=== PATIENT | male | born 1955 | race Caucasian/White ===

== ENCOUNTER 2016-12-04 16:37 | Observation (INO) | payer OTHER ==
[~2016-12-04] VITALS: Ht 167.6 cm; Wt 107.2 kg
[~2016-12-04 16:37] MED LIST: APIDRA SOL100 UNIT/1 SC; ASPIR 8181 M1 PO; ASPIRIN325 MG PO; ATORVASTATIN CA10 MG PO; CYANOCOBALAM1000 MCG PO; EFFIENT10 MG PO; HUMALOG100 UNIT/2 SC; LANTUS 3 M100 UNITS1 SC; LISINOPRIL40 MG PO; LOTREL 10/41 CAPSULE PO; METFORMIN HCL500 MG PO; METOPROLOL SUCC50 MG PO; NITROSTAT0.4 MG SL; PROTONIX40 MG PO; ROSUVASTATIN CA10 MG PO; VITAMIN D5000 UNI1 PO
[2016-12-04 17:38] LABS: EOSINOPHIL (%) 0.8 % (0-5); EOSINOPHIL COUNT 0.1 K/uL (0-0.3); HEMATOCRIT 29.9 % (38.0-50.0); IMMATURE GRANULOCYTE (%) 0.5 % (0.0-0.7); IMMATURE GRANULOCYTE COUNT 0.4 K/uL; LYMPHOCYTE COUNT 1.1 K/uL (1.0-2.8); MCH 23.8 PG (29.0-34.0); MCHC 31.4 G/DL (30.0-36.0); MCV 75.7 FL (86-99); MEAN PLAT.VOLUME 11.2 uM^3 (9.0-12.4); MONOCYTE (%) 5.6 % (3-12); MONOCYTE COUNT 0.4 K/uL (0-0.8); NEUTROPHIL (%) 77.6 % (45-76); NEUTROPHIL COUNT 5.8 K/uL (1.8-6.4); PLATELET COUNT 178 K/uL (156-360); RBC DIS.WIDTH-CV 15.9 % (11.8-14.6); RBC DIS.WIDTH-SD 41.3 % (39-53); RED BLOOD COUNT 3.95 M/uL (4.00-5.50)
[2016-12-04 17:40] LABS: WHITE BLOOD COUNT 7.5 K/uL (4.1-10.2)
[2016-12-04 17:46] LABS: CHLORIDE 101 mEq/L (99-109); POTASSIUM 4.6 mEq/L (3.7-5.4); SODIUM 133 mEq/L (136-147)
[2016-12-04 17:49] LABS: GLUCOSE 274 mg/dL (70-99)
[2016-12-04 17:50] LABS: ANION GAP 9 MEQ/L (2-14)
[2016-12-04 17:51] LABS: D-DIMER ELISA 0.33 mg/L FEU (< 0.57); TOTAL BILIRUBIN 0.4 mg/dL (0.0-1.0)
[2016-12-04 17:52] LABS: ALKALINE PHOSPHATASE 53 IU/L (3-129); GFR ESTIMATE (CALCULATED) > 59 mL/min/
[2016-12-04 17:53] LABS: UREA NITROGEN (BUN) 25 mg/dL (9-23)
[2016-12-04 18:14] LABS: TROP-I INTERPRETATION NEGATIVE; TROPONIN-I < 0.01 ng/mL (0.0-0.30)
[2016-12-04] MEDS ORDERED: GLUCOPHAGE XR,500 MG PO (20:05)
[2016-12-04] MEDS ORDERED: HYDROCHLOROTHIA25 MG PO (20:09)
[2016-12-04] MEDS ORDERED: ALEVE220 MG PO (20:09)
[2016-12-04] MEDS ORDERED: ZESTRIL40 MG PO (20:09)
[2016-12-05 01:08] LABS: TROP-I INTERPRETATION NEGATIVE; TROPONIN-I < 0.01 ng/mL (0.0-0.30)
[2016-12-05 06:34] LABS: EOSINOPHIL (%) 1.5 % (0-5); EOSINOPHIL COUNT 0.1 K/uL (0-0.3); HEMATOCRIT 25.7 % (38.0-50.0); IMMATURE GRANULOCYTE (%) 0.9 % (0.0-0.7); IMMATURE GRANULOCYTE COUNT 0.5 K/uL; LYMPHOCYTE COUNT 1.9 K/uL (1.0-2.8); MCH 23.8 PG (29.0-34.0); MCHC 31.1 G/DL (30.0-36.0); MCV 76.5 FL (86-99); MEAN PLAT.VOLUME 11.2 uM^3 (9.0-12.4); MONOCYTE (%) 6.7 % (3-12); MONOCYTE COUNT 0.4 K/uL (0-0.8); NEUTROPHIL (%) 58.6 % (45-76); NEUTROPHIL COUNT 3.4 K/uL (1.8-6.4); PLATELET COUNT 161 K/uL (156-360); RBC DIS.WIDTH-CV 15.9 % (11.8-14.6); RBC DIS.WIDTH-SD 40.9 % (39-53); RED BLOOD COUNT 3.36 M/uL (4.00-5.50); WHITE BLOOD COUNT 5.8 K/uL (4.1-10.2)
[2016-12-05 06:48] LABS: CHLORIDE 104 mEq/L (99-109); POTASSIUM 4.2 mEq/L (3.7-5.4); SODIUM 137 mEq/L (136-147)
[2016-12-05 06:51] LABS: GLUCOSE 247 mg/dL (70-99)
[2016-12-05 06:52] LABS: ANION GAP 5 MEQ/L (2-14)
[2016-12-05 06:53] LABS: TOTAL BILIRUBIN 0.4 mg/dL (0.0-1.0)
[2016-12-05 06:54] LABS: ALKALINE PHOSPHATASE 45 IU/L (3-129)
[2016-12-05 06:55] LABS: GFR ESTIMATE (CALCULATED) > 59 mL/min/
[2016-12-05 06:56] LABS: DIRECT BILIRUBIN 0.2 mg/dL (0.0-0.3); UREA NITROGEN (BUN) 29 mg/dL (9-23)
[2016-12-05 06:58] LABS: TROP-I INTERPRETATION NEGATIVE; TROPONIN-I < 0.01 ng/mL (0.0-0.30)
[2016-12-05 07:22] VITALS: BP 162/78
[2016-12-05 07:42] LABS: HDL CHOLESTEROL 21 MG/DL (Desirable>=40); IRON 154 MCG/DL (35-150); LDL CHOLESTEROL < 5 mg/dL (Desirable<100); NON-HDL CHOLESTEROL 70 mg/dL (Desirable<160); SAMPLE HEMOLYSIS CHECK 0; SAMPLE ICTERIC CHECK 0; SAMPLE LIPEMIA CHECK 0; TOTAL CHOLESTEROL 91 mg/dL (Desirable<200); TRIGLYCERIDES 343 MG/DL (Normal: <150)
[2016-12-05 08:01] LABS: FERRITIN 8 NG/ML (22-322)
[2016-12-05 12:04] VITALS: BP 115/57
[2016-12-05 15:56] VITALS: BP 122/58
[2016-12-05 18:29] LABS: POINT-OF-CARE METER ID UU13113831
== END 2016-12-05 18:20 | disposition home or self-care (01) ==
LOC: EME 16:37 → 5WEST 22:44 → EDOF 22:44 → 5WEST 12-05 07:09
PROVIDERS: Emergency Medicine; Hospitalist; Internal Medicine
DX: R06.02 Shortness of breath (principal); R55 Syncope and collapse; I10 Essential (primary) hypertension; I25.10 Atherosclerotic heart disease of native coronary artery without angina pectoris; I25.2 Old myocardial infarction; Z98.61 Coronary angioplasty status; E11.65 Type 2 diabetes mellitus with hyperglycemia; E66.01 Morbid (severe) obesity due to excess calories; Z68.38 Body mass index [BMI] 38.0-38.9, adult; D50.9 Iron deficiency anemia, unspecified; Z82.49 Family history of ischemic heart disease and other diseases of the circulatory system
CPT/HCPCS: 70450; 71010; 71275; 80048; 80053; 80061; 80076; 82607; 82728; 82948; 83540; 83880; 84466; 84484; 85025; 85379; 93005; 93306; 93880; 99281; 99285; G0378; J1650; J1815; J7030; J7040

== ENCOUNTER 2016-12-08 07:22 | Inpatient (IN) | payer OTHER ==
[~2016-12-08] VITALS: Ht 167.6 cm; Wt 105.8 kg
[2016-12-08] VITALS (11 sets, daily range): BP systolic 113–160; BP diastolic 60–76
[~2016-12-08 07:22] MED LIST changes: +ALEVE220 MG PO; +GLUCOPHAGE XR,500 MG PO; +HYDROCHLOROTHIA25 MG PO; +ZESTRIL40 MG PO
[2016-12-08 07:59] LABS: HEMATOCRIT 24.2 % (38.0-50.0); MCH 23.8 PG (29.0-34.0); MCHC 31.4 G/DL (30.0-36.0); MCV 75.6 FL (86-99); MEAN PLAT.VOLUME 11.3 uM^3 (9.0-12.4); PLATELET COUNT 149 K/uL (156-360); RBC DIS.WIDTH-CV 16.5 % (11.8-14.6); RBC DIS.WIDTH-SD 42.7 % (39-53); WHITE BLOOD COUNT 4.5 K/uL (4.1-10.2)
[2016-12-08 08:02] LABS: EOSINOPHIL (%) 1.3 % (0-5); EOSINOPHIL COUNT 0.1 K/uL (0-0.3); IMMATURE GRANULOCYTE (%) 0.7 % (0.0-0.7); IMMATURE GRANULOCYTE COUNT 0.3 K/uL; LYMPHOCYTE COUNT 0.9 K/uL (1.0-2.8); MONOCYTE (%) 6.7 % (3-12); MONOCYTE COUNT 0.3 K/uL (0-0.8); NEUTROPHIL (%) 70.3 % (45-76); NEUTROPHIL COUNT 3.2 K/uL (1.8-6.4)
[2016-12-08 08:30] LABS: ANION GAP 11 MEQ/L (2-14); CHLORIDE 99 MEQ/L (99-109); POTASSIUM 3.8 MEQ/L (3.7-5.4); SAMPLE HEMOLYSIS CHECK 0; SAMPLE ICTERIC CHECK 0; SAMPLE LIPEMIA CHECK 0; SODIUM 134 MEQ/L (136-147); TOTAL BILIRUBIN 0.4 MG/DL (0.0-1.0)
[2016-12-08 08:36] LABS: ALKALINE PHOSPHATASE 46 IU/L (3-129); GFR ESTIMATE (CALCULATED) > 59 mL/min/; GLUCOSE 311 mg/dL (70-99); UREA NITROGEN (BUN) 13 mg/dL (9-23)
[2016-12-08 08:38] LABS: TROP-I INTERPRETATION NEGATIVE; TROPONIN-I < 0.01 ng/mL (0.0-0.30)
[2016-12-08 11:03] LABS: POINT-OF-CARE METER ID UU13113702
[2016-12-08] MEDS ORDERED: HUMALOG100 UNIT/2 SC (11:03)
[2016-12-08] MEDS ORDERED: EFFIENT10 MG PO (11:04)
[2016-12-08 12:28] LABS: POINT-OF-CARE METER ID UU14149397
[2016-12-08 18:02] LABS: HEMATOCRIT 27.3 % (38.0-50.0); MCV 79.4 FL (86-99)
[2016-12-08 18:07] LABS: POINT-OF-CARE METER ID UU14149397
[2016-12-08 18:29] LABS: TROP-I INTERPRETATION NEGATIVE; TROPONIN-I < 0.01 ng/mL (0.0-0.30)
[2016-12-08 21:12] LABS: TROP-I INTERPRETATION NEGATIVE; TROPONIN-I < 0.01 ng/mL (0.0-0.30)
[2016-12-09] VITALS (15 sets, daily range): BP systolic 114–154; BP diastolic 49–79
[2016-12-09 00:40] LABS: POINT-OF-CARE METER ID UU14149397
[2016-12-09 06:17] LABS: HEMATOCRIT 31.4 % (38.0-50.0); MCH 24.7 PG (29.0-34.0); MCHC 31.2 G/DL (30.0-36.0); MCV 79.3 FL (86-99); PLATELET COUNT 165 K/uL (156-360); RBC DIS.WIDTH-CV 16.4 % (11.8-14.6); RBC DIS.WIDTH-SD 47.7 % (39-53)
[2016-12-09 06:18] LABS: RED BLOOD COUNT 3.96 M/uL (4.00-5.50); WHITE BLOOD COUNT 6.2 K/uL (4.1-10.2)
[2016-12-09 06:40] LABS: ANION GAP 9 MEQ/L (2-14); CHLORIDE 104 MEQ/L (99-109); GFR ESTIMATE (CALCULATED) > 59 mL/min/; IRON 44 MCG/DL (35-150); POTASSIUM 3.8 MEQ/L (3.7-5.4); PROTHROMBIN TIME 10.5 (9.2-11.2); PTT 23.2 (25-32); SAMPLE HEMOLYSIS CHECK 0; SAMPLE ICTERIC CHECK 0; SAMPLE LIPEMIA CHECK 0; SODIUM 139 MEQ/L (136-147); UREA NITROGEN (BUN) 11 mg/dL (9-23)
[2016-12-09 06:41] LABS: GLUCOSE 148 mg/dL (70-99)
[2016-12-09 07:00] LABS: POINT-OF-CARE METER ID UU14149397
[2016-12-09 14:20] LABS: POINT-OF-CARE METER ID UU13113819; POINT-OF-CARE USER ID 515036437
[2016-12-09 14:54] LABS: HEMATOCRIT 25.3 % (38.0-50.0); MCV 78.6 FL (86-99)
[2016-12-09 15:16] LABS: TROP-I INTERPRETATION NEGATIVE; TROPONIN-I 0.02 ng/mL (0.0-0.30)
[2016-12-09 17:16] LABS: METH RESISTANT S AUREUS PCR NEGATIVE (NEGATIVE)
[2016-12-09 17:20] LABS: PROBE CHECK PASS; SPECIMEN PROCESSING CONTROL PASS
[2016-12-09 23:32] LABS: HEMATOCRIT 26.9 % (38.0-50.0); MCV 79.4 FL (86-99)
[2016-12-10] VITALS (14 sets, daily range): BP systolic 104–157; BP diastolic 48–79
[2016-12-10 06:57] LABS: POINT-OF-CARE METER ID UU14162636
[2016-12-10 06:59] LABS: HEMATOCRIT 29.7 % (38.0-50.0); MCH 26.9 PG (29.0-34.0); MCV 81.6 FL (86-99); MEAN PLAT.VOLUME 11.1 uM^3 (9.0-12.4); PLATELET COUNT 129 K/uL (156-360); RBC DIS.WIDTH-CV 16.5 % (11.8-14.6); RBC DIS.WIDTH-SD 49.7 % (39-53); RED BLOOD COUNT 3.64 M/uL (4.00-5.50); WHITE BLOOD COUNT 6.2 K/uL (4.1-10.2)
[2016-12-10 07:20] LABS: EOSINOPHIL (%) 3.4 % (0-5); EOSINOPHIL COUNT 0.2 K/uL (0-0.3); IMMATURE GRANULOCYTE (%) 0.5 % (0.0-0.7); LYMPHOCYTE COUNT 1.3 K/uL (1.0-2.8); MONOCYTE (%) 6.5 % (3-12); MONOCYTE COUNT 0.4 K/uL (0-0.8); NEUTROPHIL (%) 68.8 % (45-76); NEUTROPHIL COUNT 4.3 K/uL (1.8-6.4)
[2016-12-10 11:34] LABS: POINT-OF-CARE METER ID UU14162636
[2016-12-10 14:32] LABS: HEMATOCRIT 27.2 % (38.0-50.0); MCV 81.4 FL (86-99)
[2016-12-10 17:45] LABS: POINT-OF-CARE METER ID UU14162636
[2016-12-10 22:07] LABS: HEMATOCRIT 30.1 % (38.0-50.0); MCV 82.2 FL (86-99)
[2016-12-11] VITALS: BP 120/53
[2016-12-11 00:01] LABS: POINT-OF-CARE METER ID UU14162636
[2016-12-11 04:00] VITALS: BP 124/52
[2016-12-11 05:37] LABS: HEMATOCRIT 30.8 % (38.0-50.0); MCH 26.1 PG (29.0-34.0); MCHC 31.8 G/DL (30.0-36.0); MCV 82.1 FL (86-99); MEAN PLAT.VOLUME 11.8 uM^3 (9.0-12.4); PLATELET COUNT 129 K/uL (156-360); RBC DIS.WIDTH-CV 16.2 % (11.8-14.6); RBC DIS.WIDTH-SD 48.7 % (39-53); RED BLOOD COUNT 3.75 M/uL (4.00-5.50); WHITE BLOOD COUNT 4.9 K/uL (4.1-10.2)
[2016-12-11 06:17] LABS: ANION GAP 7 MEQ/L (2-14); CHLORIDE 108 MEQ/L (99-109); GFR ESTIMATE (CALCULATED) > 59 mL/min/; GLUCOSE 156 mg/dL (70-99); POTASSIUM 4.3 MEQ/L (3.7-5.4); SAMPLE HEMOLYSIS CHECK 1; SAMPLE ICTERIC CHECK 0; SAMPLE LIPEMIA CHECK 0; SODIUM 141 MEQ/L (136-147); UREA NITROGEN (BUN) 14 mg/dL (9-23)
[2016-12-11 08:00] VITALS: BP 153/72
[2016-12-11 08:04] LABS: POINT-OF-CARE METER ID UU14162636
[2016-12-11 12:00] VITALS: BP 133/66
[2016-12-11 12:07] LABS: POINT-OF-CARE METER ID UU14162636
[2016-12-11 16:06] VITALS: BP 144/69
[2016-12-11 16:49] LABS: POINT-OF-CARE METER ID UU14174225
[2016-12-11 21:14] VITALS: BP 153/76
[2016-12-12] VITALS: BP 154/71
[2016-12-12 04:00] VITALS: BP 148/76
[2016-12-12 06:52] LABS: HEMATOCRIT 30.9 % (38.0-50.0); MCH 26.9 PG (29.0-34.0); MCV 81.5 FL (86-99); MEAN PLAT.VOLUME 11.8 uM^3 (9.0-12.4); PLATELET COUNT 133 K/uL (156-360); RBC DIS.WIDTH-CV 16.4 % (11.8-14.6); RBC DIS.WIDTH-SD 46.3 % (39-53); RED BLOOD COUNT 3.79 M/uL (4.00-5.50); WHITE BLOOD COUNT 5.5 K/uL (4.1-10.2)
[2016-12-12 06:55] LABS: EOSINOPHIL (%) 3.5 % (0-5); EOSINOPHIL COUNT 0.2 K/uL (0-0.3); IMMATURE GRANULOCYTE (%) 0.4 % (0.0-0.7); IMMATURE GRANULOCYTE COUNT 0.2 K/uL; LYMPHOCYTE COUNT 1.2 K/uL (1.0-2.8); MONOCYTE (%) 8.4 % (3-12); MONOCYTE COUNT 0.5 K/uL (0-0.8); NEUTROPHIL (%) 65.2 % (45-76); NEUTROPHIL COUNT 3.6 K/uL (1.8-6.4)
[2016-12-12 07:23] VITALS: BP 168/79
[2016-12-12 07:43] LABS: POINT-OF-CARE METER ID UU14174225
[2016-12-12 07:43] LABS: ANION GAP 9 MEQ/L (2-14); CHLORIDE 104 MEQ/L (99-109); GFR ESTIMATE (CALCULATED) > 59 mL/min/; GLUCOSE 188 mg/dL (70-99); POTASSIUM 4.3 MEQ/L (3.7-5.4); SAMPLE HEMOLYSIS CHECK 0; SAMPLE ICTERIC CHECK 0; SAMPLE LIPEMIA CHECK 0; SODIUM 141 MEQ/L (136-147); UREA NITROGEN (BUN) 15 mg/dL (9-23)
[2016-12-12 11:21] VITALS: BP 150/82
[2016-12-12] MEDS ORDERED: PROTONIX40 MG PO (14:59)
[2016-12-12 15:14] VITALS: BP 144/72
== END 2016-12-12 16:46 | disposition home or self-care (01) | DRG 378 ==
LOC: EME 07:22 → 3EAST 10:13 → EDOF 10:13 → 4WEST 10:13 → 3EAST 11:50 → 4WEST 12-09 15:48 → 5SOUTH 12-11 15:38
PROVIDERS: Emergency Medicine; Hospitalist; Internal Medicine; Internal Medicine Critical Care Medicine; Internal Medicine Gastroenterology
PROC: 0DJ07ZZ Inspection of Upper Intestinal Tract, Via Natural or Artificial Opening (ICD-10-PCS; principal; 2016-12-09)
PROC: 30233N1 Transfusion of Nonautologous Red Blood Cells into Peripheral Vein, Percutaneous Approach (ICD-10-PCS; 2016-12-10)
DX: K92.2 Gastrointestinal hemorrhage, unspecified (principal); D62 Acute posthemorrhagic anemia; K31.7 Polyp of stomach and duodenum; K92.1 Melena; I25.10 Atherosclerotic heart disease of native coronary artery without angina pectoris; E11.9 Type 2 diabetes mellitus without complications; I10 Essential (primary) hypertension; R55 Syncope and collapse; E78.5 Hyperlipidemia, unspecified; K22.70 Barrett's esophagus without dysplasia; E66.01 Morbid (severe) obesity due to excess calories; Z95.5 Presence of coronary angioplasty implant and graft; Z79.4 Long term (current) use of insulin; I25.2 Old myocardial infarction
CPT/HCPCS: 80048; 80053; 80061; 80076; 82607; 82728; 82948; 83540; 83880; 84466; 84484; 85014; 85018; 85025; 85025 91; 85027; 85610; 85730; 86850; 86900; 86901; 86920; 87641; 88305; 88342 TC; 93005; 99281; 99285; B4087; C9113; G0378; J1650; J1815; J2250; J7030; J7040; P9016; P9017

== ENCOUNTER → 2018-07-07 | Outpatient (CLI) | payer OTHER ==
[~2018-07-07] VITALS: Ht 167.6 cm; Wt 102.1 kg
[~2018-07-07] MED LIST changes: +NOVOLOG PE100 UNITS/ SC; +TRESIBA FL100 UNIT/1 SC; +TRULICITY0.75 MG/0. SC
== END | disposition home or self-care (01) ==
LOC: AMB 10:56
PROVIDERS: Internal Medicine Gastroenterology
PROC: 0DB68ZX Excision of Stomach, Via Natural or Artificial Opening Endoscopic, Diagnostic (ICD-10-PCS; principal; 2018-07-07)
DX: K31.7 Polyp of stomach and duodenum (principal); K22.10 Ulcer of esophagus without bleeding; D64.9 Anemia, unspecified; K92.1 Melena; K21.9 Gastro-esophageal reflux disease without esophagitis; I25.10 Atherosclerotic heart disease of native coronary artery without angina pectoris; I25.2 Old myocardial infarction; I10 Essential (primary) hypertension; E11.9 Type 2 diabetes mellitus without complications; Z79.4 Long term (current) use of insulin; E78.5 Hyperlipidemia, unspecified; M19.90 Unspecified osteoarthritis, unspecified site; Z88.8 Allergy status to other drugs, medicaments and biological substances
CPT/HCPCS: 82948; 88305; 88342 TC; 93005; J2250